=== PATIENT | male | born 1950 | race Caucasian/White ===

== ENCOUNTER → 2016-08-17 | Outpatient (CLI) | payer OTHER ==
--- NOTE | 2016-08-17 15:41 | US ---
Bilateral Duplex/Doppler Carotid Sonography Clinical Indications: Hyperlipidemia. Previous bypass surgery. Hypertension. R09.89 Technique: The cervical portions of the carotid and vertebral arteries were imaged and interrogated by color and pulsed Duplex/Doppler. Spectral analysis was performed. Findings: Right Carotid: Right CCA peak systolic velocity = 78 cm/sec Right ICA peak systolic velocity = 95 cm/sec Right ECA peak systolic velocity = 97 cm/sec Right ICA/CCA systolic velocity ratio = 1.22 Velocities correlate to less than 50% diameter stenosis of the origin of the right internal carotid a rtery with respect to the normal distal internal carotid artery. Mild calcified plaque involving the right carotid bulb and proximal right internal carotid artery. Left Carotid: Left CCA peak systolic velocity = 101 cm/sec Left ICA peak systolic velocity = 96 cm/sec Left ECA peak systolic velocity = 98 cm/sec Left ICA/CCA systolic velocity ratio = 0.94 Velocities correlate to less than 50% diameter stenosis of the origin of the left internal carotid ar marty with respect to the normal distal internal carotid artery. Mild calcified plaque involving the l eft carotid bulb and proximal left internal carotid artery. Vertebral Arteries: Antegrade flow is shown by pulsed Doppler of each vertebral artery. Impression: 1. Mild atherosclerotic disease bilateral carotid bulbs. 2. Velocities correlate to less than 50% diameter stenosis of the origin of the right internal caroti d artery. 3. Velocities correlate to less than 50% diameter stenosis of the origin of the left internal carotid artery. 4. Bilateral vertebral arteries are patent with antegrade flow. Measurement of carotid stenosis is based on velocity parameters that correlate the residual internal carotid diameter with [place] Symptomatic Carotid Endarterectomy Trial (NASCET) based stenosis levels.
== END ==
LOC: BRMIMAGING 13:52
PROVIDERS: ATTEND Internal Medicine Interventional Cardiology
DX: I65.23 Occlusion and stenosis of bilateral carotid arteries (principal); Z95.1 Presence of aortocoronary bypass graft; E78.5 Hyperlipidemia, unspecified; I10 Essential (primary) hypertension
CPT/HCPCS: 93880-PO

== ENCOUNTER 2017-03-28 08:59 | Day surgery (SDC) | payer OTHER ==
[2017-03-28] MEDS ORDERED: LIDOCAINE 1% 300 MG/30 ML SDV SC ONE (09:13)
--- NOTE | 2017-03-28 09:14 | PDHPUP ---
History & Physical Update H&P update statement: This history and physical update is based on an assessment of the patient which was completed after admission or registration (within 24 hours), but prior to the surgery/procedure. H&P update: H&P reviewed & patient examined, no change in patient's condition since H&P completed
--- NOTE | 2017-03-28 11:21 | GPN ---
[f rep st] PROCEDURE NOTE DATE OF PROCEDURE: 03/28/2017 PROCEDURE PERFORMED: [employer] implantable loop recorder. INDICATION FOR PROCEDURE: Evaluate for possible paroxysmal atrial fibrillation. PROCEDURE: After informed consent was obtained, the patient was brought to the cardiac procedure [facility], where he was prepped and draped in a sterile fashion. 1% lidocaine was used to anesthetize the sk in. Using a scalpel, the blade provided in the [employer] kit, the incision was made in the skin at t he 5th intercostal space, 2 cm from midline. This incision was modified with a 5 blade scalpel. The device was then safely injected under the skin without complication. Hemostasis was achieved. Curr ently at the time of this dictation, the device was being interrogated. Patient tolerated the proced ure well. There were no postoperative complications. PLAN: 1. The patient's device will be interrogated prior to discharge. 2. Patient is scheduled for wound and device check on April 05, 2017. 3. Patient will continue outpatient medications. 4. Patient's model number on his device is a 24 Quan Reveal LINQ, serial #[id number]. /[id number]
== END 2017-03-28 11:09 | disposition home or self-care (01) ==
LOC: FCATH 08:59
PROVIDERS: ATTEND Internal Medicine Cardiovascular Disease
PROC: 0JH602Z Insertion of Monitoring Device into Chest Subcutaneous Tissue and Fascia, Open Approach (ICD-10-PCS; principal; 2017-03-28)
DX: I48.0 Paroxysmal atrial fibrillation (principal); I25.10 Atherosclerotic heart disease of native coronary artery without angina pectoris; E78.5 Hyperlipidemia, unspecified; I10 Essential (primary) hypertension; I77.9 Disorder of arteries and arterioles, unspecified; G47.33 Obstructive sleep apnea (adult) (pediatric)
CPT/HCPCS: C1764